=== PATIENT | male | born 1990 | race African-American/Black ===

== ENCOUNTER 2018-09-05 11:09 | Emergency (ER) | payer OTHER ==
[2018-09-05] MEDS ORDERED: HYDROCODONE/ACETAMINOPHEN 5-325 MG TABLET PO ONE (11:53)
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
[2018-09-05 13:08] VITALS: BP 126/90
== END 2018-09-05 13:12 | disposition home or self-care (01) ==
LOC: ER 11:09
DX: S01.512A Laceration without foreign body of oral cavity, initial encounter (principal); S01.511A Laceration without foreign body of lip, initial encounter; S01.21XA Laceration without foreign body of nose, initial encounter; W16.522A Jumping or diving into swimming pool striking bottom causing other injury, initial encounter; Y92.34 Swimming pool (public) as the place of occurrence of the external cause; F17.200 Nicotine dependence, unspecified, uncomplicated
CPT/HCPCS: 70486; 72125; 99283